=== PATIENT | female | born 1995 | race Two or more races ===

== ENCOUNTER 2017-02-15 15:05 | Outpatient (CLI) | payer SELFPAY ==
[~2017-02-15] VITALS: Ht 157.5 cm; Wt 70.0 kg
[2017-02-15 15:08] VITALS: BP 115/68
== END 2017-02-15 16:05 | disposition home or self-care (01) ==
LOC: LDOP 15:05
PROVIDERS: ATTEND Obstetrics & Gynecology
DX: O26.893 Other specified pregnancy related conditions, third trimester (principal); O42.92 Full-term premature rupture of membranes, unspecified as to length of time between rupture and onset of labor; R10.9 Unspecified abdominal pain; Z3A.38 38 weeks gestation of pregnancy
CPT/HCPCS: 59025; 89060; 99211; G0463; Q0114

== ENCOUNTER 2017-03-02 22:05 | Inpatient (IN) | payer OTHER ==
[~2017-03-02] VITALS: Ht 157.5 cm; Wt 72.0 kg
[2017-03-02 22:30] VITALS: BP 126/88
[2017-03-03] MEDS ORDERED: OXYTOCIN 30U/ 0.9% NaCL 500ML 500 ML IV ONE (00:18)
[2017-03-03] MEDS ORDERED: FENTANYL PF 100 MCG/2ML IV PRN (00:30)
[2017-03-03] MEDS ORDERED: ONDANSETRON 2MG/ML, 2ML IVPush PRN ×2 (00:30→17:30)
[2017-03-03] MEDS ORDERED: METOCLOPRAMIDE 5 MG/ML, 2ML IVPush PRN (00:30)
[2017-03-03] MEDS ORDERED: OXYTOCIN 30U/ 0.9% NaCL 500ML 500 ML ONE (00:30)
[2017-03-03] MEDS ORDERED: NEWBORN KIT ONE (00:30)
[2017-03-03] MEDS ORDERED: CALCIUM CARBONATE 500 MG TAB.CHEW PO PRN (00:30)
[2017-03-03] MEDS ORDERED: FENTANYL PF 100 MCG/2ML ONE ×7 (00:38→14:44)
[2017-03-03] MEDS: FENTANYL PF 100 MCG/2ML IVPush PRN ×6 (00:44→11:36)
[2017-03-03] MEDS: LACTATED RINGERS 1,000 ML IV SCH ×4 (00:44→15:30)
[2017-03-03 00:54] LABS: HEMATOCRIT 35.6 % (34.6-47.8); HEMOGLOBIN 11.7 g/dL (11.7-16.4); WHITE BLOOD COUNT 12.2 x10^3/uL (4.5-13.2)
[2017-03-03] MEDS ORDERED: ONDANSETRON 2MG/ML, 2ML ONE (06:39)
[2017-03-03] MEDS: D5%-LACTATED RINGERS 1,000 ML IV SCH ×2 (06:42→13:17)
[2017-03-03] MEDS ORDERED: OXYTOCIN 30U/ 0.9% NaCL 500ML 500 ML IV PRN (09:12)
[2017-03-03] MEDS ORDERED: FENTANYL/BUPIV./NS/PF 250 ML EPIDCONT ONE (14:45)
[2017-03-03] MEDS ORDERED: BUPIVACAINE 0.25% ONE (14:45)
[2017-03-03] MEDS ORDERED: FENTANYL/BUPIV./NS/PF 250 ML EPIDCONT SCH (17:21)
[2017-03-03] MEDS ORDERED: LACTATED RINGERS 1,000 ML IV SCH (17:21)
[2017-03-03] MEDS ORDERED: LACTATED RINGERS 1,000 ML IVBOLUS PRN (17:30)
[2017-03-03] MEDS ORDERED: EPHEDRINE 50 MG/ML, 1ML IVPush PRN (17:30)
[2017-03-03] MEDS ORDERED: AMPICILLIN 2 GM in SODIUM CHLORIDE 0.9% 100 ML IV SCH ×2 (22:30→23:30)
[2017-03-03] MEDS ORDERED: GENTAMICIN 360 MG in SODIUM CHLORIDE 0.9% 100 ML IV SCH (22:30)
[2017-03-04] MEDS ORDERED: METOCLOPRAMIDE 5 MG/ML, 2ML ONE (00:57)
[2017-03-04] MEDS ORDERED: SODIUM CITRATE/CITRIC ACID 30 ML UDC ONE (00:57)
[2017-03-04] MEDS: D5%-LACTATED RINGERS 1,000 ML IV SCH (01:39)
[2017-03-04] MEDS ORDERED: ACETAMINOPHEN 325 MG TABLET ONE (03:29)
[2017-03-04] MEDS ORDERED: ACETAMINOPHEN 325 MG TABLET PO PRN ×3 (03:30→09:00)
[2017-03-04] MEDS ORDERED: IBUPROFEN 600 MG TABLET ONE (08:20)
[2017-03-04] MEDS ORDERED: OXYTOCIN 30U/ 0.9% NaCL 500ML 500 ML ONE (08:24)
[2017-03-04] MEDS: IBUPROFEN 600 MG TABLET PO PRN (08:30)
[2017-03-04] MEDS: OXYTOCIN 30U/ 0.9% NaCL 500ML 500 ML IV SCH ×10 (08:38→19:00)
[2017-03-04] MEDS ORDERED: MISOPROSTOL 200 MCG TABLET PR PRN (09:00)
[2017-03-04] MEDS ORDERED: CALCIUM CARBONATE 500 MG TAB.CHEW PO PRN (09:00)
[2017-03-04] MEDS ORDERED: DOCUSATE 100 MG CAPSULE PO PRN (09:00)
[2017-03-04] MEDS: PRENATAL VIT/IRON/FA 1 EACH TABLET PO SCH (09:00)
[2017-03-04] MEDS ORDERED: BISACODYL 10 MG SUPP PR PRN (09:00)
[2017-03-04] MEDS ORDERED: HYDROcodone/APAP 5/325 TABLET PO PRN ×2 (09:00)
[2017-03-04] MEDS ORDERED: HYDROcodone/APAP 5/325 TABLET ONE (09:42)
[2017-03-04 10:10] VITALS: BP 114/71
[2017-03-04 12:45] VITALS: BP 118/79
[2017-03-04 15:57] LABS: HEMOGLOBIN 9.9 g/dL (11.7-16.4); WHITE BLOOD COUNT 16.5 x10^3/uL (4.5-13.2)
[2017-03-04 15:58] LABS: ANISOCYTOSIS 1+
[2017-03-04 15:59] LABS: HYPOCHROMIA 1+; MICROCYTOSIS 1+; OVALOCYTES 1+; POLYCHROMASIA 1+
[2017-03-04 16:00] LABS: LARGE PLATELETS 1+
[2017-03-04 16:30] VITALS: BP 109/72
[2017-03-04 22:05] VITALS: BP 127/79
[2017-03-05 02:45] VITALS: BP 123/84
[2017-03-05] MEDS: IBUPROFEN 600 MG TABLET PO PRN (03:00)
[2017-03-05] MEDS: OXYTOCIN 30U/ 0.9% NaCL 500ML 500 ML IV SCH (04:38)
[2017-03-05 07:15] VITALS: BP 93/59
[2017-03-05] MEDS: PRENATAL VIT/IRON/FA 1 EACH TABLET PO SCH (09:00)
[2017-03-05] MEDS ORDERED: IBUP-1222 PO (13:08)
[2017-03-05] MEDS ORDERED: DOCU-131 PO (13:09)
[2017-03-05] MEDS ORDERED: HYDR1TAB12 PO (13:43)
== END 2017-03-05 15:19 | disposition home or self-care (01) | DRG 775 ==
LOC: LDOP 22:05 → LDIP 03-03 00:25 → 2NW 03-04 10:10
PROVIDERS: ADMIT Obstetrics & Gynecology; ATTEND Obstetrics & Gynecology
PROC: 10E0XZZ Delivery of Products of Conception, External Approach (ICD-10-PCS; principal; 2017-03-04)
PROC: 0KQM0ZZ Repair Perineum Muscle, Open Approach (ICD-10-PCS; 2017-03-04)
PROC: 10907ZC Drainage of Amniotic Fluid, Therapeutic from Products of Conception, Via Natural or Artificial Opening (ICD-10-PCS; 2017-03-04)
PROC: 3E0R3BZ Introduction of Anesthetic Agent into Spinal Canal, Percutaneous Approach (ICD-10-PCS; 2017-03-04)
PROC: 00HU33Z Insertion of Infusion Device into Spinal Canal, Percutaneous Approach (ICD-10-PCS; 2017-03-04)
DX: O77.0 Labor and delivery complicated by meconium in amniotic fluid (principal); O41.1230 Chorioamnionitis, third trimester, not applicable or unspecified; Z37.0 Single live birth; O66.0 Obstructed labor due to shoulder dystocia; O70.1 Second degree perineal laceration during delivery; Z3A.40 40 weeks gestation of pregnancy
CPT/HCPCS: 36415; 82803; 85025; 86850; 86900; 89060; J0290; J2405; J3010; J1580; J2590; J7120; J7121; Q0114